=== PATIENT | female | born 1945 | race Two or more races ===

== ENCOUNTER 2017-10-22 23:35 | Emergency (ER) | payer MEDICAID ==
[~2017-10-22] VITALS: Ht 162.6 cm; Wt 69.1 kg
[~2017-10-22 23:35] MED LIST: AMLO5TAB PO
[2017-10-22 23:50] VITALS: BP 151/80
--- NOTE | 2017-10-22 23:52 | NUR ---
PT AMBULATED TO CHAIR B
--- NOTE | 2017-10-22 23:55 | NUR ---
72/F BIB W C/O PRODUCTIVE COUGH AND FEVER X 7 DAYS. ALL LUNG SOUNDS CBTA,DIMINISHED AT BASES, 16RR EVEN AND UNLABORED. FAMILY REPORTS WHITE SPUTUM. DENIES SOB/CP, N/V/D, CURRENTLY AFEBRILE. PMH: HTN
[2017-10-23 00:59] VITALS: BP 135/87
--- NOTE | 2017-10-23 01:01 | NUR ---
Patient discharged with v/s stable. Written and verbal after care instructions given and explained. Patient alert, oriented and verbalized understanding of instructions. Ambulatory with steady gait. All questions addressed prior to discharge. ID band removed. Patient advised to follow up with PMD. Rx of PROMETHAZINE HYDROCHLORIDE/DEXTROMETHORPHAN HYDROBROMIDE 6.25MG-15MG/5ML SYRUP,AZITROMYCIN given. Patient educated on indication of medication including possible reaction and side effects. Opportunity to ask questions provided and answered.
== END 2017-10-23 00:59 | disposition home or self-care (01) ==
LOC: MED 23:35
DX: J20.9 Acute bronchitis, unspecified (principal); I10 Essential (primary) hypertension; Z79.899 Other long term (current) drug therapy
CPT/HCPCS: 36415; 71045; 87081; 87804; 99285

== ENCOUNTER 2018-02-16 22:28 | Emergency (ER) | payer SELFPAY ==
[~2018-02-16] VITALS: Ht 152.4 cm; Wt 64.9 kg
[2018-02-16 22:35] VITALS: BP 146/72
--- NOTE | 2018-02-16 22:37 | NUR ---
TO LOBBY A/W BED,FOR XRAY , TATI BISHOP ERMD NOTED
--- NOTE | 2018-02-16 23:04 | NUR ---
PT TAKEN TO [facility] FROM [facility]
--- NOTE | 2018-02-16 23:30 | NUR ---
PT AMBULATED TO BED 11
--- NOTE | 2018-02-16 23:43 | NUR ---
72 Y/O F BIB SON W/C/O NON-PRODUCTIVE COUGH X 1 WK. PT DENIES ANY FEVER OR CHILLS. NO S/S OF RESP DISTRESS NOTED. ER MADE AWARE.
--- NOTE | 2018-02-17 00:40 | NUR ---
Dr. Le evaluating patient
[2018-02-17 00:42] VITALS: BP 143/75
--- NOTE | 2018-02-17 00:42 | NUR ---
Patient discharged with v/s stable. Written and verbal after care instructions given and explained TO PT AND SON. Patient alert, oriented and verbalized understanding of instructions. Ambulatory with steady gait. All questions addressed prior to discharge. ID band removed. Patient advised to follow up with PMD. Rx of TESSALON, AND AZITHROMYCIN given. Patient educated on indication of medication including possible reaction and side effects. Opportunity to ask questions provided and answered.
--- NOTE | 2018-02-17 07:30 | NUR ---
ADDENDUM: CXR DISCREPANCY RECIEVED FROM [facility], REFERRED TO DR. COLMENARES WILL WAIT FOR DISPO.
--- NOTE | 2018-02-17 12:10 | NUR ---
ADDENDUM: SPOKE TO PATIENT TO RETURN TONIGHT AFTER 1900 TO SEE FOR FARTHER EVAL. RE: CXR RESULTS PER DR. COLMENARES
== END 2018-02-17 00:42 | disposition home or self-care (01) ==
LOC: MED 22:28
DX: J20.9 Acute bronchitis, unspecified (principal); I10 Essential (primary) hypertension; Z79.899 Other long term (current) drug therapy
CPT/HCPCS: 71045; 99283